=== PATIENT | male | born 1995 | race Caucasian/White ===

== ENCOUNTER 2018-05-09 18:38 | Emergency (ER) | payer OTHER ==
--- NOTE | 2018-05-09 19:17 | ED ---
General Adult HPI - General Chief complaint: Urogenital Stated complaint: male gu, poss uti Source: patient Mode of arrival: ambulatory Limitations: no limitations - History of Present Illness Initial comments: Dictation was produced using [employer] dictation software. please excuse any grammatical, word or spelling errors. Chief Complaint: 22-year-old male in no serial past medical history presents with dysuria 1 day. History of Present Illness: [employer] [place] today when he went to the bathroom. He had one episode of urination. He states that it felt really painful. Patient denies any sexual activity. Patient does report masturbating several times and on a regular basis. Patient noted some blood in his urine as well. The ROS documented in this emergency department record has been reviewed and confirmed by me. Those systems with pertinent positive or negative responses have been documented in the HPI. All other systems are other negative and/or noncontributory. - Related Data Previous Rx's Medication Instructions Recorded Phenazopyridine [Pyridium] 100 mg PO TID 2 Days #9 tablet 05/09/18 Allergies Allergy/AdvReac Type Severity Reaction Status Date / Time No Known Allergies Allergy Verified 05/09/18 19:19 Review of Systems ROS Statement: Those systems with pertinent positive or pertinent negative responses have been documented in the HPI. ROS Other: All systems not noted in ROS Statement are negative. Past Medical History Past Medical History: No Reported History History of Any Multi-Drug Resistant Organisms: None Reported Past Surgical History: No Surgical Hx Reported Past Psychological History: No Psychological Hx Reported Smoking Status: Current every day smoker Past Alcohol Use History: Occasional Past Drug Use History: None Reported General Exam - General Exam Comments Initial Comments: PHYSICAL EXAM: General Impression: Alert and oriented x3, not in acute distress HEENT: Normocephalic atraumatic, extra-ocular movements intact, pupils equal and reactive to light bilaterally, mucous membranes moist. Cardiovascular: Heart regular rate and rhythm, S1&S2 audible, no murmurs, rubs or gallops Chest: Lungs clear to auscultation bilaterally, no rhonchi, no wheeze, no rales Abdomen: Bowel sounds present, abdomen soft, non-tender, non-distended, no organomegaly Musculoskeletal: Pulses present and equal in all extremities, no peripheral edema Motor: Power 5/5 bilaterally, no focal deficits noted Neurological: CN II-XII grossly intact, no focal motor or sensory deficits noted Skin: Intact with no visualized rashes Psych: Normal affect and mood exam: No blood at the meatus, testis are intact. Limitations: no limitations Course Vital Signs 05/09/18 18:46 Temperature 98.9 F Pulse Rate 96 Respiratory 18 Rate Blood Pressure 150/91 O2 Sat by Pulse 98 Oximetry Medical Decision Making - Medical Decision Making ED course: 22-year-old male with no significant past medical history presents with dysuria. As upon arrival are within acceptable limits. Urinalysis is obtained. Trace leukocyte esterase. 2 WBCs, 1 RBC. There is a rare urine mucus. No glucose. No ketones. More history was obtained. Patient states he's been masturbating more than usual. No clinical suspicion of bacterial or STD associated urethritis. Patient told to abstain from masturbation so symptoms return. Patient given prescription for Pyridium for symptom control. She told to follow-up with urology. Patient is unremarkable agreeable to plan. - Lab Data Lab Results 05/09/18 Range/Units 19:10 Urine Color Yellow Urine Appearance Clear (Clear) Urine pH 6.5 (5.0-8.0) Ur Specific [place] 1.023 (1.001-1.035) Urine Protein Trace H (Negative) Urine Glucose (UA) Negative (Negative) Urine Ketones Negative (Negative) Urine Blood Negative (Negative) Urine Nitrite Negative (Negative) Urine Bilirubin Negative (Negative) Urine Urobilinogen 2.0 (<2.0) mg/dL Ur Leukocyte Esterase Trace H (Negative) Urine RBC 1 (0-5) /hpf Urine WBC 2 (0-5) /hpf Urine Mucus Rare H (None) /hpf Disposition Clinical Impression: Urethritis Disposition: HOME SELF-CARE Condition: Good Instructions: Dysuria (ED) Prescriptions: Phenazopyridine [Pyridium] 100 mg PO TID 2 Days #9 tablet Is patient prescribed a controlled substance at d/c from ED?: No Referrals: None,Stated [Primary Care Provider] - 1-2 days Pablo Wilburn MD [STAFF PHYSICIAN] - 1-2 days Time of Disposition: 20:05
[2018-05-09 19:35] LABS: Appearance,Urine Clear (Clear); Bilirubin,Urine Negative (Negative); Blood,Urine Negative (Negative); Color,Urine Yellow; Glucose,Urine (UA) Negative (Negative); Ketones,Urine Negative (Negative); Leukocyte Esterase,Urine Trace (Negative); Mucus,Urine Rare /hpf; Nitrite,Urine Negative (Negative); PH, Urine 6.5 (5.0-8.0); Protein,Urine Trace (Negative); RBC,Urine 1 /hpf (0-5); Specific Gravity,Urine 1.023 (1.001-1.035); WBC,Urine 2 /hpf (0-5)
[2018-05-09 20:30] VITALS: BP 124/63; PULSE 85; RESP 17; TEMP 98.1
[2018-05-10 14:39] LABS: C. trachomatis,PCR Negative (Neg,Equiv); Chlamydia trachomatis Source Urine
[2018-05-10 15:19] LABS: N. gonorrhoeae,PCR Negative (Neg,Equiv); Neisseria Source Urine
== END 2018-05-09 20:11 | disposition home or self-care (01) ==
LOC: EC 18:38
DX: N34.2 Other urethritis (principal); F98.8 Other specified behavioral and emotional disorders with onset usually occurring in childhood and adolescence; F17.200 Nicotine dependence, unspecified, uncomplicated
CPT/HCPCS: 81001; 87086; 87491; 87591; 99283